=== PATIENT | male | born 1945 | race Native Hawaiian/Other Pacific Islander ===

== ENCOUNTER 2016-10-22 14:23 | Outpatient (CLI) | payer OTHER ==
[~2016-10-22 14:23] MED LIST: ASA LO-DOSE81 MG PO; BENA20TA2 PO; CARDIZEM LA360 MG PO; CRESTOR20 MG PO; NIASPAN1000 ER PO
== END 2016-10-22 20:03 | disposition home or self-care (01) ==
LOC: RAD 14:23
DX: M54.9 Dorsalgia, unspecified (principal)

== ENCOUNTER 2016-10-23 09:00 | Outpatient (CLI) | payer OTHER ==
[2016-10-23 09:21] LABS: PLATELET COUNT 134 K/uL (142-355)
[2016-10-23 10:44] LABS: POTASSIUM 3.7 mmol/L (3.6-5.2)
== END 2016-10-23 19:06 | disposition home or self-care (01) ==
LOC: LABW 09:00
PROVIDERS: Internal Medicine
DX: E11.9 Type 2 diabetes mellitus without complications (principal)
CPT/HCPCS: 36415; 80053; 80061; 81000; 82043; 82533; 82570; 83036; 84153; 84439; 84443; 85027

== ENCOUNTER 2017-07-12 08:32 | Outpatient (CLI) | payer OTHER | END 2017-07-12 19:27 | disposition home or self-care (01) | LOC: LAB 08:32 | DX: L03.116 Cellulitis of left lower limb (principal) | CPT/HCPCS: 87070; 87077; 87186; 87205 ==

== ENCOUNTER → 2017-07-17 08:43 | Outpatient (CLI) | payer OTHER ==
[2017-07-17 09:18] LABS: PLATELET COUNT 141 K/uL (142-355)
[2017-07-17 09:55] LABS: POTASSIUM 3.7 mmol/L (3.6-5.2)
== END | disposition home or self-care (01) ==
LOC: LABW 08:43
PROVIDERS: Internal Medicine Cardiovascular Disease
DX: I25.10 Atherosclerotic heart disease of native coronary artery without angina pectoris (principal); E11.9 Type 2 diabetes mellitus without complications; Z12.5 Encounter for screening for malignant neoplasm of prostate; E78.4 Other hyperlipidemia
CPT/HCPCS: 36415; 80053; 80061; 81000; 82043; 82248; 82570; 83036; 84153; 84439; 84443; 85027

== ENCOUNTER 2018-06-03 08:49 | Outpatient (CLI) | payer OTHER ==
[2018-06-03 09:33] LABS: PLATELET COUNT 148 K/uL (142-355)
[2018-06-03 10:12] LABS: POTASSIUM 3.8 mmol/L (3.6-5.2)
== END 2018-06-03 22:09 | disposition home or self-care (01) ==
LOC: LABW 08:49
PROVIDERS: Internal Medicine Cardiovascular Disease
DX: Z00.00 Encounter for general adult medical examination without abnormal findings (principal); Z12.5 Encounter for screening for malignant neoplasm of prostate; E11.9 Type 2 diabetes mellitus without complications; Z12.11 Encounter for screening for malignant neoplasm of colon; I25.10 Atherosclerotic heart disease of native coronary artery without angina pectoris; Z79.899 Other long term (current) drug therapy
CPT/HCPCS: 36415; 80053; 80061; 80076; 81000; 82043; 82570; 83036; 84153; 84439; 84443; 85027

== ENCOUNTER 2018-06-10 12:35 | Outpatient (CLI) | payer OTHER | END 2018-06-10 22:40 | disposition home or self-care (01) | LOC: LAB 12:35 | DX: Z12.11 Encounter for screening for malignant neoplasm of colon (principal) | CPT/HCPCS: 82272 ==

== ENCOUNTER 2018-06-11 07:43 | Outpatient (CLI) | payer OTHER | END 2018-06-11 19:17 | disposition home or self-care (01) | LOC: LAB 07:43 | DX: Z12.11 Encounter for screening for malignant neoplasm of colon (principal) | CPT/HCPCS: 82272 ==

== ENCOUNTER 2018-06-12 08:25 | Outpatient (CLI) | payer OTHER | END 2018-06-12 21:41 | LOC: LAB 08:25 | DX: Z12.11 Encounter for screening for malignant neoplasm of colon (principal) | CPT/HCPCS: 82272 ==

== ENCOUNTER 2018-09-17 16:03 | Outpatient (CLI) | payer OTHER ==
[2018-09-17 16:41] LABS: PLATELET COUNT 168 K/uL (142-355)
[2018-09-17 16:50] LABS: POTASSIUM 3.6 mmol/L (3.6-5.2)
== END 2018-09-17 20:28 | disposition home or self-care (01) ==
LOC: LAB 16:03
PROVIDERS: Internal Medicine
DX: M79.89 Other specified soft tissue disorders (principal)
CPT/HCPCS: 36415; 80053; 84550; 85027; 85651; 86140

== ENCOUNTER 2019-06-08 10:14 | Outpatient (CLI) | payer OTHER ==
[2019-06-08 10:33] LABS: PLATELET COUNT 141 K/uL (142-355)
[2019-06-08 10:56] LABS: POTASSIUM 3.7 mmol/L (3.6-5.2)
== END 2019-06-08 23:08 | disposition home or self-care (01) ==
LOC: LABW 10:14
PROVIDERS: Internal Medicine
DX: Z00.00 Encounter for general adult medical examination without abnormal findings (principal); M54.6 Pain in thoracic spine; E11.9 Type 2 diabetes mellitus without complications; Z79.899 Other long term (current) drug therapy; N40.0 Benign prostatic hyperplasia without lower urinary tract symptoms
CPT/HCPCS: 36415; 80053; 80061; 81000; 83036; 84153; 84439; 84443; 85027

== ENCOUNTER 2020-01-20 07:43 | Outpatient (CLI) | payer OTHER ==
[2020-01-20 08:18] LABS: PLATELET COUNT 123 K/uL (142-355)
[2020-01-20 08:20] LABS: POTASSIUM 3.7 mmol/L (3.6-5.2)
== END 2020-01-20 19:43 | disposition home or self-care (01) ==
LOC: LABW 07:43
PROVIDERS: Internal Medicine Gastroenterology
DX: D50.9 Iron deficiency anemia, unspecified (principal); Z79.899 Other long term (current) drug therapy; N40.1 Benign prostatic hyperplasia with lower urinary tract symptoms
CPT/HCPCS: 36415; 80053; 80061; 84153; 85027; 85651

== ENCOUNTER 2020-02-17 11:50 | Outpatient (CLI) | payer OTHER | END 2020-02-17 22:01 | disposition home or self-care (01) | LOC: LABW 11:50 | DX: I63.432 Cerebral infarction due to embolism of left posterior cerebral artery (principal) | CPT/HCPCS: 81241; 83090; 85210; 85240; 85300; 85302; 85305; 86038; 86147 ==

== ENCOUNTER 2020-06-08 14:39 | Outpatient (CLI) | payer OTHER ==
[2020-06-08 14:55] LABS: PLATELET COUNT 158 K/uL (142-355)
[2020-06-08 15:15] LABS: POTASSIUM 4.6 mmol/L (3.6-5.2)
== END 2020-06-08 22:16 | disposition home or self-care (01) ==
LOC: LAB 14:39
PROVIDERS: ATTEND Internal Medicine
DX: Z00.00 Encounter for general adult medical examination without abnormal findings (principal); E11.9 Type 2 diabetes mellitus without complications; Z79.899 Other long term (current) drug therapy; E55.9 Vitamin D deficiency, unspecified; Z12.5 Encounter for screening for malignant neoplasm of prostate; N40.0 Benign prostatic hyperplasia without lower urinary tract symptoms
CPT/HCPCS: 80053; 80061; 81000; 82043; 82306; 82570; 83036; 84153; 84443; 84550; 85027

== ENCOUNTER 2021-02-21 07:58 | Outpatient (CLI) | payer OTHER ==
[2021-02-21 08:18] LABS: PLATELET COUNT 138 K/uL (142-355)
[2021-02-21 08:59] LABS: POTASSIUM 3.6 mmol/L (3.6-5.2)
== END 2021-02-21 19:27 | disposition home or self-care (01) ==
LOC: LABW 07:58
PROVIDERS: ATTEND Internal Medicine Cardiovascular Disease
DX: I10 Essential (primary) hypertension (principal); D64.9 Anemia, unspecified; R73.9 Hyperglycemia, unspecified
CPT/HCPCS: 36415; 80053; 80061; 82728; 83525; 84681; 85027; 86140

== ENCOUNTER 2021-09-05 08:04 | Outpatient (CLI) | payer OTHER ==
[2021-09-05 08:30] LABS: PLATELET COUNT 143 K/uL (142-355)
[2021-09-05 08:54] LABS: POTASSIUM 3.8 mmol/L (3.6-5.2)
== END 2021-09-05 18:58 | disposition home or self-care (01) ==
LOC: LABW 08:04
PROVIDERS: ATTEND Internal Medicine Cardiovascular Disease
DX: I10 Essential (primary) hypertension (principal); D64.9 Anemia, unspecified; Z79.899 Other long term (current) drug therapy
CPT/HCPCS: 36415; 80053; 82728; 83036; 84681; 85027

== ENCOUNTER 2021-09-19 11:54 | Outpatient (CLI) | payer OTHER ==
[2021-09-19 12:21] LABS: PLATELET COUNT 159 K/uL (142-355)
[2021-09-19 13:20] LABS: POTASSIUM 3.5 mmol/L (3.6-5.2)
== END 2021-09-19 18:58 | disposition home or self-care (01) ==
LOC: LAB 11:54
PROVIDERS: ATTEND Internal Medicine
DX: I10 Essential (primary) hypertension (principal); Z12.5 Encounter for screening for malignant neoplasm of prostate; R06.09 Other forms of dyspnea; N40.0 Benign prostatic hyperplasia without lower urinary tract symptoms; E11.9 Type 2 diabetes mellitus without complications; G47.33 Obstructive sleep apnea (adult) (pediatric)
CPT/HCPCS: 80053; 80061; 81000; 82043; 83036; 83880; 84153; 84439; 84443; 84550; 85027